=== PATIENT | male | born 1960 | race Two or more races ===

== ENCOUNTER 2023-03-02 08:53 | Emergency (ER) | payer OTHER ==
[~2023-03-02] VITALS: Ht 175.3 cm; Wt 68.0 kg
[2023-03-02] MEDS ORDERED: CLONAZEPAM1 MG PO (09:02)
[2023-03-02] MEDS ORDERED: HUMULIN N100 UNIT/2 IM (09:02)
[2023-03-02] MEDS ORDERED: CYMBALTA60 MG PO (09:02)
[2023-03-02] MEDS ORDERED: HUMALOG100 UNIT/2 SQ (09:02)
== END 2023-03-02 13:14 | disposition home or self-care (01) ==
LOC: ER 08:53
DX: R55 Syncope and collapse (principal); E11.65 Type 2 diabetes mellitus with hyperglycemia; Z79.4 Long term (current) use of insulin

== ENCOUNTER 2023-03-03 10:25 | Outpatient (CLI) | payer OTHER ==
[~2023-03-03 10:25] MED LIST: CLONAZEPAM1 MG PO; CYMBALTA60 MG PO; HUMALOG100 UNIT/2 SQ; HUMULIN N100 UNIT/2 IM
== END 2023-03-03 10:33 | disposition home or self-care (01) ==
LOC: MRI 10:25
PROVIDERS: ATTEND Emergency Medicine
DX: R55 Syncope and collapse (principal)
CPT/HCPCS: 70551

== ENCOUNTER 2023-05-16 08:54 | Outpatient (CLI) | payer OTHER | END 2023-05-16 09:00 | disposition home or self-care (01) | LOC: NUCLEAR 08:54 | PROVIDERS: ATTEND Psychiatry & Neurology Neuromuscular Medicine | DX: I70.213 Atherosclerosis of native arteries of extremities with intermittent claudication, bilateral legs (principal); I70.219 Atherosclerosis of native arteries of extremities with intermittent claudication, unspecified extremity ==